=== PATIENT | male | born 1985 | race Caucasian/White ===

== ENCOUNTER 2017-02-16 10:00 | Emergency (ER) | payer MEDICAID ==
[~2017-02-16] VITALS: Ht 182.9 cm; Wt 76.0 kg
[~2017-02-16 10:00] MED LIST: BENZ2TAB PO; DOCU100C PO; FLUP1INJ IM; HYDR50TA94 PO; LITH300T3 PO; OMEP40CA2 PO; SERO400T PO
[2017-02-16 10:01] VITALS: BP 122/79; PULSE 72; RESP 15; TEMP 98.1; O2SAT 99
[2017-02-16] MEDS ORDERED: PROP20TA3 PO (10:21)
[2017-02-16] MEDS ORDERED: NAPR500T PO (10:33)
[2017-02-16] MEDS ORDERED: PENI500T PO (10:33)
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
== END 2017-02-16 10:38 | disposition home or self-care (01) ==
LOC: NEPD 10:00
DX: K04.7 Periapical abscess without sinus (principal)
CPT/HCPCS: 99282

== ENCOUNTER 2017-03-27 19:55 | Emergency (ER) | payer MEDICAID, OTHER ==
[~2017-03-27] VITALS: Ht 182.9 cm; Wt 78.0 kg
[~2017-03-27 19:55] MED LIST changes: -DOCU100C PO; -FLUP1INJ IM; +NAPR500T PO; +PENI500T PO; +PROP20TA3 PO
[2017-03-27 20:06] VITALS: BP 133/103; PULSE 98; RESP 14; TEMP 98.5; O2SAT 96
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
[2017-03-27 21:04] LABS: AUTOMATED NEUTROPHIL # 4.6 TH/MM3 (1.8-7.7); BASOPHIL # 0.1 TH/MM3 (0-0.2); BASOPHIL % 1.4 % (0.0-2.0); EOSINOPHIL # 0.4 TH/MM3 (0-0.4); EOSINOPHIL % 5.5 % (0.0-4.0); HEMATOCRIT 38.7 % (39.0-51.0); HEMO FLAGS DIFF FINAL; LYMPH % 19.4 % (9.0-44.0); LYMPHOCYTE # 1.4 TH/MM3 (1.0-4.8); MEAN CELL VOLUME 88.2 FL (80.0-100.0); MEAN CORPUSCULAR HEMOGLOBIN 30.4 PG (27.0-34.0); MEAN CORPUSCULAR HGB CONC 34.5 % (32.0-36.0); MONO % 10.3 % (0.0-8.0); NEUT % 63.4 % (16.0-70.0); PLATELET COUNT 356 TH/MM3 (150-450); RED BLOOD COUNT 4.38 MIL/MM3 (4.50-5.90); RED CELL DISTRIBUTION WIDTH 14.9 % (11.6-17.2); WHITE BLOOD COUNT 7.2 TH/MM3 (4.0-11.0)
[2017-03-27 21:13] LABS: AMPHETAMINE, URINE NEG (NEG); BARBITURATES, URINE NEG (NEG); COCAINE, URINE NEG (NEG)
[2017-03-27 21:18] LABS: ANION GAP 5 MEQ/L (5-15); AST (GOT) 15 U/L (15-37); BICARBONATE 29.9 MEQ/L (21.0-32.0); BLOOD UREA NITROGEN 5 MG/DL (7-18); CHLORIDE 102 MEQ/L (98-107); GLOMERULAR FILTRATION RATE 99 ML/MIN (>89); SODIUM (NA) 137 MEQ/L (136-145)
[2017-03-27] MEDS ORDERED: COGENTIN PO (21:21)
[2017-03-27 21:42] LABS: ALKALINE PHOSPHATASE 79 U/L (45-117); ALT (GPT) 21 U/L (12-78); TOTAL BILIRUBIN ADULT 0.3 MG/DL (0.2-1.0)
[2017-03-28 01:22] VITALS: BP 128/82; PULSE 92; RESP 12; O2SAT 99
[2017-03-28 04:26] VITALS: BP 132/78; PULSE 89; RESP 12; O2SAT 98
[2017-03-28 04:45] VITALS: BP 118/76; PULSE 92; RESP 20; TEMP 98.1; O2SAT 98
[2017-03-28 06:27] VITALS: BP 125/77; PULSE 85; RESP 20; O2SAT 97
[2017-03-28 11:28] VITALS: BP 138/77; PULSE 95; RESP 16; O2SAT 98
[2017-03-28] MEDS ORDERED: LITH300T3 PO (13:57)
[2017-03-28] MEDS ORDERED: SERO400T PO (13:57)
== END 2017-03-28 14:23 | disposition home or self-care (01) ==
LOC: NEPD 19:55 → NEPJ 03-28 14:23
DX: F29 Unspecified psychosis not due to a substance or known physiological condition (principal); F20.9 Schizophrenia, unspecified; F31.9 Bipolar disorder, unspecified; F25.9 Schizoaffective disorder, unspecified; F32.9 Major depressive disorder, single episode, unspecified; F17.200 Nicotine dependence, unspecified, uncomplicated; Z79.899 Other long term (current) drug therapy; Z88.0 Allergy status to penicillin
CPT/HCPCS: 80053; 80178; 80307; 85025; 99284

== ENCOUNTER 2017-12-03 14:50 | Emergency (ER) | payer MEDICAID, OTHER ==
[~2017-12-03 14:50] MED LIST changes: -NAPR500T PO; -PENI500T PO; -PROP20TA3 PO
[2017-12-03 15:11] VITALS: BP_SYST 135; BP_SYST 152; BP_DIAS 66; BP_DIAS 77; PULSE 99; RESP 15; TEMP 97.7; O2SAT 99
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
== END 2017-12-03 15:47 | disposition left against medical advice (07) ==
LOC: NEPK 14:50
DX: S80.851A Superficial foreign body, right lower leg, initial encounter (principal); F20.9 Schizophrenia, unspecified; F17.200 Nicotine dependence, unspecified, uncomplicated; Z79.899 Other long term (current) drug therapy; Z88.0 Allergy status to penicillin; Z88.8 Allergy status to other drugs, medicaments and biological substances; W34.010A Accidental discharge of airgun, initial encounter
CPT/HCPCS: 99281